=== PATIENT | female | born 1950 | race Caucasian/White ===

== ENCOUNTER 2019-11-08 05:48 | Observation (INO) | payer MEDICARE, OTHER ==
[~2019-11-08] VITALS: Ht 157.5 cm; Wt 65.8 kg
[~2019-11-08 05:48] MED LIST: ALLEGRA ALLERGY60 MG PO; ASPIRIN81 MG PO; BREO ELLIPTA 21 EACH INH; BUPROPION XL300 MG PO; CAL MAG ZINC +1 EACH PO; COZAAR100 MG PO; CYCLOBENZAPRINE10 MG PO; EFFEXOR XR150 MG PO; EFFEXOR XR75 MG PO; MIRALAX17 GM PO; MOBIC15 MG PO; MORPHINE SULFAT30 M1 PO; MUCINEX600 MG PO; MULTI-VITAMIN1 EACH PO; NORCO 7.5-3251 EACH PO; OMEPRAZOLE20 MG PO; PLAQUENIL200 MG PO; PREMARIN0.3 MG PO; SAVELLA100 MG PO; SINGULAIR10 MG PO; SPIRIVA18 MCG INH; SYNTHROID50 MCG PO; VITAMIN B122500 MC1 PO; VITAMIN D32000 UNI2 PO; ZOFRAN4 MG PO
--- OUTSIDE RECORDS SUMMARY | 2019-11-08 05:50 | XMS ---
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 EDebbi VISIT COUNT ([address] [facility] 1 KIRA Richard TOTAL 5 NOTE: Visits indicate total known visits. ED/UCC VISIT TRACKING (12 MO.) 11/08/2019 05:49 [facility] TYPE: Emergency COMPLAINT: - SHORTNESS OF BREATHE 09/27/2019 16:30 [facility] TYPE: Emergency DIAGNOSES: - Other chronic pain - Other nonspecific abnormal finding of lung field - Abdominal Pain - Abd pain - Unspecified abdominal pain [facility] DIAGNOSES: - Lobar pneumonia, unspecified organism - sore throat - Pyothorax without fistula - Fatigue - Chronic obstructive pulmonary disease with (acute) exacerbati 07[facility]11/2019 14[facility] DIAGNOSES: - Poss Pneumonia - Acute kidney failure, unspecified - Shortness of Breath - Cough - Sepsis, unspecified organism - Lobar pneumonia, unspecified organism - Severe sepsis without septic shock 12[facility]12[facility]2018 [facility] DIAGNOSES: - Shortness of Breath - Pneumonia, unspecified organism - Shortness of Breath; Dizziness INPATIENT VISIT TRACKING (12 MO.) 08/07/2019 15:19 [facility] TYPE: Swing Bed DIAGNOSES: - 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 TYPE: Internal Medicine DIAGNOSES: - Hypo-osmolality and hyponatremia - Pneumonia, unspecified organism - Lobar pneumonia, unspecified organism [email or web address]
[2019-11-08] MEDS ORDERED: MORPHINE SULFAT15 M1 PO (06:47)
--- NOTE | 2019-11-08 11:44 | NUR ---
IV SITE INTACT, FLUIDS AND FLUSHES INFUSE EASILY, PT DENIES PAIN AT SITE. PT ALERT AND ORIENTED X4. PT C/O SLIGHT NAUSEA, 4 MG ZOFRAN IV GIVEN. PT NOT ABLE TO HELP TRANSFER FROM [place] TO BED, TWO PERSON ASSIST TO MOVE. VITALS WNL AT THIS TIME.
--- NOTE | 2019-11-08 11:53 | NUR ---
PT GIVEN 2 MG IV MORPHINE FOR 01/18 RT CHEST/SHOULDER PAIN.
--- NOTE | 2019-11-08 12:10 | NUR ---
CABA URINARY CATH PLACED ON PT. IMMEDIATE URINE RETURN OBTAINED. PT AIMEE WELL.
[2019-11-08] MEDS ORDERED: SAVELLA100 MG PO (12:30)
--- NOTE | 2019-11-08 12:55 | NUR ---
FULL REPORT GIVEN TO PATRICIA COLUNGA. ALSO BEDSIDE REPORT GIVEN. ALL QUESTIONS ANSWERED. PT REMAINS ALERT AND ORIENTED X4.
--- NOTE | 2019-11-08 13:22 | NUR ---
pt taken off bipap and non-rebreather mask placed with 15L flow, pt desats to 70% within 1-2 minutes. pt given a sip of water for comfort. then placed back on bipap. pt remains alert and oriented x4. iv site is intact, no redness or swelling noted.
--- NOTE | 2019-11-08 13:30 | NUR ---
PT GIVEN LOVENOX SHOT, IV ABX STARTED. PT IS ALERT AND ORIENTED AT THIS TIME. PT DENIES NAUSEA, AND DENIES NEED FOR PAIN MEDICATION AT THIS TIME.
--- NOTE | 2019-11-08 14:31 | NUR ---
pt to med surg, family member present. resting in bed bipap in place.
--- NOTE | 2019-11-08 14:34 | NUR ---
PT AGREES SHE WOULD LIKE SOME PAIN MEDICATION MORPHINE ADMINISTERED. ASSISTED WITH ORAL CARE, BLANKETS, AND MOVING UP IN BED. PT AGREES SHE IS COMFORTABLE CALL LIGHT IN REACH
--- NOTE | 2019-11-08 15:32 | NUR ---
ASSISTED PT WITH ORAL CARE AND CHAP STICK. KLEENEX PROVIDED PER REQUESTS SATS DIP TO 84% WHILE OFF MASK FOR CARES. PT AGREES MORPHINE WAS EFFECTIVE DENIES OTHER NEEDS AGREES SHE IS COMFORTABLE
--- NOTE | 2019-11-08 19:34 | NUR ---
BEDSIDE REPORT RECIEVED FROM CRISTINE GOMEZ. pt RESTING IN BED AWAKE. HOB ELEVATED. VAPOTHERM 40L AT 100% FIO2 IN PLACE, SPO2 87%. pt C/O PAIN, PRN MEDICATION ADMINISTERED. CABA INTACT. CALL LIGHT IN REACH.
--- NOTE | 2019-11-08 19:55 | NUR ---
CHECKED ON pt. RESTING IN BED W HOB ELEVATED. DOES NOT AWAKEN TO VOICE. SPO2 96% ON VAPOTHERM. CALL LIGHT IN REACH.
--- NOTE | 2019-11-08 20:47 | NUR ---
CALL LIGHT ANSWERED. PATIENT C/O WARM ROOM. CHECKED THE ROOM THERMOSTAT, WAS ON LOWEST 67. OFFERED SMALL FAN. PROVIDED. PATIENT WAS THANKFUL.
--- NOTE | 2019-11-08 21:50 | NUR ---
pt ASSESSMENT COMPLETE. pt SOB, LUNG SOUNDS DIMINISHED THROUGHOUT. SCHEDULED NEBULIZER TREATMENT ADMINISTERED BY RN. VAPOTHERM [address], 100% FIO2. pt DENIES SOB AFTER NEB TREATMENTS. CALL LIGHT IN REACH. ICE WATER, JUICE IN REACH. pt REQUESTING TO SLEEP.
--- NOTE | 2019-11-08 21:53 | NUR ---
CABA CARE DONE.
--- NOTE | 2019-11-08 23:26 | NUR ---
CHECKED ON pt. RESTING IN BED WITH EYES CLOSED. RR 22. VAPOTHERM IN PLACE. LIGHTS OFF IN ROOM. CALL LIGHT NEXT TO pt.
--- NOTE | 2019-11-09 01:08 | NUR ---
CALL LIGHT ANSWERED. PRN PAIN MEDICATION ADMINISTERED FOR 8/10 PAIN. CALL LIGHT IN REACH. VAPOTHERM IN PLACE.
--- NOTE | 2019-11-09 02:00 | NUR ---
IN pt ROOM FOR IV ANTIBIOTIC ADMINISTRATION. RT IN pt ROOM. SPO2 86% ON VAPOTHERM 40L, 100% FIO2. pt DENIES ANY SOB. ASSESSMENT COMPLETE. LUNG SOUNDS COARSE, DIMINISHED RLL. REPOSITIONED WITH TWO NURSING STAFF ASSIST. CABA DRAINING CLEAR YELLOW URINE. IV ANTIBIOTIC INFUSING WNL ORDERED. CALL LIGHT IN REACH.
--- NOTE | 2019-11-09 02:33 | NUR ---
CALL LIGHT ANSWERED. pt C/O SOB. BIPAP APPLIED REQUESTED. SPO2 INCREASES FORM 74% TO 90% ON BIPAP. CALL LIGHT IN REACH.
--- NOTE | 2019-11-09 03:15 | NUR ---
CHECKED ON pt. RESTING IN BED WITH EYES CLOSED. BIPAP ON. SPO2 92% HR 100 ON CPOX. HOB ELEVATED.
--- NOTE | 2019-11-09 04:29 | NUR ---
CALL LIGHT ANSWERED. pt C/O 03/20 BACK AND SHOULDER PAIN. PRN PAIN MEDICATION ADMINISTERED. pt REQUESTING TO BE OFF BIPAP, VAPOTHERM 40L 100% FIO2 APPLIED. SPO2 DROPS TO 78%. pt C/O SOB. REQUESTING BIPAP BACK ON. SPO2 INCREASES TO 91%. CALL LIGHT IN REACH. NO ADDITIONAL REQUESTS.
--- NOTE | 2019-11-09 05:35 | NUR ---
pt RESTED ON AND OFF THIS SHIFT. PRN PAIN MEDICATION ADMINISTERED THROUGHOUT SHIFT. PILLS CRUSHED, pt UNABLE TO SWALLOW WHOLE PILLS. CLEAR LIQUID DIET. IV SL WNL. VAPOTHERM AT START OF SHIFT, pt DEVELOPED SOB WITH VAPOTHERM AT 40L 100% FIO2, SATURATIONS DECREASING TO 78%. BIPAP ON FOR SECOND HALF OF SHIFT, pt TOLERATED WELL. CABA CATHETER IN PLACE. ALERT AND ORINETED X 4. ASSISTED WITH TURNS. pt SOB WITH EXERTION.
--- NOTE | 2019-11-09 07:58 | NUR ---
received report from bernardino Daly. pt on cpap, spo2 96% eyes closed, appears asleep and comfortable. will be back to assess.
--- NOTE | 2019-11-09 08:07 | NUR ---
PATIENT RESTING IN BED. CALL LIGHT WITHIN REACH. NO OTHER NEEDS AT THIS TIME
--- NOTE | 2019-11-09 08:59 | NUR ---
PT ON BIPAP, PLACED ON VAPOTHERM FOR AM MED PASS, PT ABLE TO TAKE AM MEDS WITH APPLESAUCE WHOLE DID NOT CRUSH MORPHINE EXTENDED RELEASE. SHE DID DESATURATE ON VAPOTHERM TO 75-80%, PLACED BACK ON BIPAP PT RECOVERED TO 91% WITHIN 60 SECONDS. PT ALSO ADMINISTERED 2MG IV MORPHINE PRN FOR SHORTNESS OF BREATH.
--- NOTE | 2019-11-09 09:24 | NUR ---
PATIENT RESTING IN BED. VITAL SIGNS AND I&O DONE. CALL LIGHT WITHIN REACH. NO OTHER NEEDS AT THIS TIME
--- NOTE | 2019-11-09 10:18 | NUR ---
PT STATED HER PAIN " IS NOT BAD" . NO DISTRESS NOTED. NO NEEDS AT THE MPOMENT.
[2019-11-09] MEDS ORDERED: ONDANSETRON ODT4 MG PO (11:11)
--- NOTE | 2019-11-09 11:11 | NUR ---
MED REC COMPLETE
--- NOTE | 2019-11-09 11:11 | NUR ---
BED AT THE BED SIDE. PT ALERT. PAIN MED GIVEN, SEE MAR
--- NOTE | 2019-11-09 11:50 | NUR ---
Spoke with pt and her son. Pt is on BIpap and has difficulty speaking. Pt states she wants to have hospice. Son asks if she wants to go to his home and she agrees. Son and pt are awaiting daughter arrival as she is flying from [place]. Pt recently arrived from [place] and does not have PCP, she has started seeing Dr. Mays for her stage IV lung ca. Will meet with family tomorrow to work towards hospice after daughter arrives and discusses pt's condition with pt and brother.
--- NOTE | 2019-11-09 12:47 | NUR ---
WALKED INTOPT ROOM TO ASSESS FOR PAIN. WIHT EYES CLOSED, LABORED BREATHING NOTED , RR 22. MOANS IN SLEEP. WILL MANAGE PAIN WITH PRN MEDS. SEE MAR.
--- NOTE | 2019-11-09 13:38 | NUR ---
PATIENT RESTING IN BED. VITAL SIGNS AND I&O DONE. CALL LIGHT WITHIN REACH. NO OTHER NEEDS AT THIS TIME
--- NOTE | 2019-11-09 14:22 | NUR ---
pt resting in bed eyes closed no distress noted. 93% oxygen saturation on bipap at this time.
--- NOTE | 2019-11-09 14:33 | NUR ---
WAS INFORMED BY STAFF THAT PTS' DAUGHTER WILL BE ARRIVING ANYTIME AND HARSHA HOROWITZ IS GIVEN AUTHORIZTION FOR HER AND HER BROTHER TO VISIT PT. I ALERTED SCREENERS TO ALLOW THEM TO PASS. PT ON BIPAP, PLEASANT AND SEEMED TO BE COMFORTABLE. WANTED TO SAVE PTS' ENERGY FOR HER CHILDREN'S VISIT. GAVE BLESSING, SHE THANKED ME
--- NOTE | 2019-11-09 14:37 | NUR ---
pt denied any needs at the moment.
--- NOTE | 2019-11-09 15:53 | NUR ---
pt received prn pain medication. alert, oriented, pleasant. done with assessment. call light in reach, no needs at the moment.
--- NOTE | 2019-11-09 17:16 | NUR ---
PATIENT RESTING IN BED. VITAL SIGNS AND I&O DONE. CALL LIGHT WITHIN REACH. NO OTHER NEEDS AT THIS TIME
--- NOTE | 2019-11-09 17:54 | NUR ---
prn pain medicatiom given, see mar. pt alert, cooperative. cpap on . pt maintains SpO2 94%. family involved in care.
--- NOTE | 2019-11-09 17:56 | NUR ---
PT ON CPAP, MAINTAINED SPO2 92-94%. WAS ABLE TO SWALLOW SCHEDULED PI;;S WITH APPLE SAUCE. PAIN MANAGEMENT WAS EFFECTIVE. SEE MAR. CYBER INTELLIGENCE ANALYST DISCUSSED WITH PT AND HER SON PLAN FOR DISCHARGE ([facility]FORT [facility]ARE AND HOSPICE IN SON'S HOUSE). PT ALERT, COOPERATIVE, CALLS APPROPRIATE.
--- NOTE | 2019-11-09 19:30 | NUR ---
BEDSIDE REPORT RECEIVED FROM CRISTINE WADE. pt ON BIPAP, SPO2 93% WITH CPOX. pt REQUESTING MORPHINE. ADMINISTERED AT THIS TIME. CALL LIGHT IN REACH.
--- NOTE | 2019-11-09 22:40 | NUR ---
pt ASSESSMENT COMPLETE. SPO2 DROPS TO 68% ON VAPOTHERM AT 100%, [address], SPO2 92%. IV SITE INFILTRATED LEFT FOREARM, NEW PIV RIGHT FOREARM WNL, IVF INFUSING. PRN AND SCHEDULED PAIN MEDICATION ADMINISTERED FOR 6/10 PAIN IN BACK, SOB. pt REPOSITIONED. CABA CARE BY ADE ARREOLA COMPLETE. CALL LIGHT IN REACH. LIGHTS OFF IN ROOM. ORAL CARE, PO FLUIDS PROVIDED.
--- NOTE | 2019-11-10 00:53 | NUR ---
pt'S FAMILY IN ROOM, DAUGHTER FROM [place]. PRN MORPHINE IV ADMINISTERED FOR SOB. VAPOTHERM APPLIED. SPO2 MAINTAINING 85-86% ON VAPOTHERM 40 L, 100% FIO2. DRINKS OF ICE WATER PROVIDED TO pt. BIPAP BACK ON AFTER FOUR MINUTES ON VAPOTHERM, SPO2 DROPS TO 78%, pt C/O SOB.
--- NOTE | 2019-11-10 02:53 | NUR ---
IN pt ROOM FOR ANTIBIOTIC ADMINISTRATION. pt AWAKENS TO VOICE. BIPAP ON, SPO2 95% ON CPOX. PRN PAIN MEDICATION ADMINISTERED FOR SOB, PAIN. DAUGHTER AT BEDSIDE. REPOSITIONED WITH TWO RN ASSIST. DRINK OF WATER PROVIDED. CALL LIGHT IN REACH.
--- NOTE | 2019-11-10 06:15 | NUR ---
CHECKED ON pt. SHIFTING IN BED. PRN PAIN MEDICATION ADMINISTERED. pt REMAINS AGITATED. WANTING TO REMOVE BIPAP "I WANT TO NOW. I'M READY". DAUGHTER AT BEDSIDE CALLING pt'S SON. PHONED. NEW ORDERS OBTAINED, ONE TIME ADDITIONAL MORPHINE DOSE AND PRN ATIVAN ADMINISTERED. pt NOW RESTING IN BED, APPEARS COMFORTABLE, EYES CLOSED. RR 16. SPO2 92% ON BIPAP. SON AND DAUGHTER AT BEDSIDE. COFFEE PROVIDED TO FAMILY.
--- NOTE | 2019-11-10 06:20 | NUR ---
PATIENT BECMAE AGITATED AND INCREASNIGLY SOB. PATIENT IS NO LONGER TOLERATING BIPAP WELL BUT IS CONTINUING TO WEAR IT. PATIENT STATED "I WANT TO ". PATIENT GIVEN PRN MEDICATION FOR SOB AND PAIN BY KATIE COLUNGA. UNFOTUNATELY THESE MEDICATIONS DID NOT RELIEVE PATIENTS SYMPTOMS. PLACED CALL TO MD. NEW VERBAL ORDERS RECEIVED FROM MD. VERIFIED ORDERS USING THE READBACK METHOD. PATIENT GIVEN PRN MEDICATION FOR SOB AND ANXIETY. SON AND DAUGHTER ARE NOW IN THE ROOM. KATIE COLUNGA REMAINS IN THE ROOM.
--- NOTE | 2019-11-10 07:27 | NUR ---
PT RESTING EYES CLOSED DURING BEDSIDE REPORT. FAMILY ARE PRESENT IN THE ROOM APPEAR TO BE COPING WELL. BIPAP IN PLACE PT APPEARS RESTFUL
--- NOTE | 2019-11-10 07:30 | NUR ---
In and spoke with daughter, Xiomara and son Santos. They would like everything stopped. They are awaiting Dr. Carlson. Feel mom is suffering and does not Bipap. Checked with nurses and they have already called Dr. Carlson. Will not proceed with Hospice and I do not think pt will leave the hospital.
--- NOTE | 2019-11-10 08:12 | NUR ---
PT FIGHTING BIPAP FAMILY REQUEST IT BE REMOVED PT HAS STATED TO THEM SHE IS READY. MEDICATED WITH MORPHINE AND ATIVAN FOR COMFORT. MASK REMOVED FAMILY AT BEDSIDE. PT BREATHS ARE AGONAL SHE APPEARS RESTFUL HOWEVER.
--- NOTE | 2019-11-10 08:18 | NUR ---
pt has remained relaxed since the removal of bipap, family tearful at bedside. breathing is occassional gasps. dr mi arrives to room.
--- NOTE | 2019-11-10 08:30 | NUR ---
PT PASSES, HEART NO LONGER BEATING, NO RESPIRATIONS. CLERGY CALLED PER FAMILY REQUEST
--- NOTE | 2019-11-10 12:29 | NUR ---
NOTIFIED BY ADE TIRADO OF PTS' PASSING, FAMILY IN . DAUGHTER Riya MARTIN.IN LAW ANGELA AND SON HANS IN , TEARFUL BUT RECEPTIVE OF MY PRESENCE. FAMILY STILL MOURNING THE LOSS OF THEIR DAD 2 MONTHS AGO. VERY OPEN TO MY PROMOTIONAL DEMONSTRATOR. WALKED FAMILY THROUGH THEIR GRIEF AND DEBRIEFED. FAMILY HAS CHOSEN FUN. [facility]OLAS FROM [place] FOR ARRANGEMENTS. CONTACTED STEVIE Rene AND THEY MADE PLAN TO HAVE [facility] RETRIEVE BODY.FAMILY CHOSE NOT TO STAY, INSTRUCTED THEM TO CONTACT HM LATER TODAY AND GAVE CONTACT INFO. HAD PRAYER WITH FAMILY, THEY STATED THEY ARE VERY PLEASED WITH THE CARE PT AND THEY HAVE RECEIVED AT [facility]. STUDENTS ASSISTED WITH BODY REMOVAL.
== END 2019-11-10 11:05 | disposition home or self-care (01) ==
LOC: ED 05:48 → CCU 05:50 → MS 05:50 → CCU 05:50 → MS 13:55
PROVIDERS: ADMIT Internal Medicine
DX: J18.9 Pneumonia, unspecified organism (principal); J96.21 Acute and chronic respiratory failure with hypoxia; J96.22 Acute and chronic respiratory failure with hypercapnia; C34.91 Malignant neoplasm of unspecified part of right bronchus or lung; C78.7 Secondary malignant neoplasm of liver and intrahepatic bile duct; J43.9 Emphysema, unspecified; E03.9 Hypothyroidism, unspecified; K21.9 Gastro-esophageal reflux disease without esophagitis; F32.9 Major depressive disorder, single episode, unspecified; I10 Essential (primary) hypertension; G89.4 Chronic pain syndrome; Z88.2 Allergy status to sulfonamides; Z88.1 Allergy status to other antibiotic agents; Z88.8 Allergy status to other drugs, medicaments and biological substances; Z91.048 Other nonmedicinal substance allergy status; Z79.82 Long term (current) use of aspirin; Z79.899 Other long term (current) drug therapy
CPT/HCPCS: 36415; 36600; 51702; 71045; 71260; 80053; 81001; 82803; 85025; 94640; 94660; 94762; 94799; 96372; 96374; 96375; 96376; 99285-25; A9270; C9113; G0378; J1650; J1956; J2060; J2270; J2405; J2543; J7121; Q9967